=== PATIENT | female | born 1945 | race Two or more races ===

== ENCOUNTER 2021-06-12 11:10 | Outpatient (CLI) | payer OTHER | END 2021-06-12 11:15 | disposition home or self-care (01) | LOC: RAD 11:10 | PROVIDERS: ATTEND Internal Medicine | DX: M51.35 Other intervertebral disc degeneration, thoracolumbar region (principal); I10 Essential (primary) hypertension; I87.2 Venous insufficiency (chronic) (peripheral); I70.0 Atherosclerosis of aorta; I70.293 Other atherosclerosis of native arteries of extremities, bilateral legs; I67.2 Cerebral atherosclerosis; E03.8 Other specified hypothyroidism; J30.89 Other allergic rhinitis; K57.30 Diverticulosis of large intestine without perforation or abscess without bleeding; K59.09 Other constipation; R19.5 Other fecal abnormalities; F33.1 Major depressive disorder, recurrent, moderate; M81.0 Age-related osteoporosis without current pathological fracture; M33.22 Polymyositis with myopathy; M54.17 Radiculopathy, lumbosacral region; M51.36 Other intervertebral disc degeneration, lumbar region; M51.37 Other intervertebral disc degeneration, lumbosacral region; M54.2 Cervicalgia; E53.8 Deficiency of other specified B group vitamins; Z68.31 Body mass index [BMI] 31.0-31.9, adult ==

== ENCOUNTER 2022-02-11 14:10 | Emergency (ER) | payer OTHER ==
[~2022-02-11] VITALS: Ht 172.7 cm; Wt 90.7 kg
[2022-02-11] MEDS ORDERED: SYNTHROID50 MCG (14:26)
[2022-02-11] MEDS ORDERED: METHOTREXA25 MG/1 M5 (14:26)
[2022-02-11] MEDS ORDERED: ESOMEPRAZOLE MA40 MG (14:27)
[2022-02-11] MEDS ORDERED: LISINOPRIL5 MG (14:27)
[2022-02-11] MEDS ORDERED: GABAPENTIN300 M2 (14:27)
[2022-02-11] MEDS ORDERED: ALENDRONATE SOD70 MG (14:27)
[2022-02-11] MEDS ORDERED: DICLOFENAC SOD100 GM (14:27)
[2022-02-11] MEDS ORDERED: RAYOS1 MG (14:27)
[2022-02-11] MEDS ORDERED: QUINAPRIL HCL5 MG (14:28)
[2022-02-11] MEDS ORDERED: LINZESS72 MCG (14:28)
[2022-02-11] MEDS ORDERED: FLONASE16 GM (14:28)
[2022-02-11] MEDS ORDERED: RISEDRONATE SO150 MG (14:28)
[2022-02-11] MEDS ORDERED: FAMOTIDINE40 MG (14:28)
[2022-02-11] MEDS ORDERED: CLEOCIN HCL300 MG PO (18:16)
== END 2022-02-11 18:21 | disposition home or self-care (01) ==
LOC: ER 14:10
DX: S81.812A Laceration without foreign body, left lower leg, initial encounter (principal); X58.XXXA Exposure to other specified factors, initial encounter; Y93.9 Activity, unspecified; Y92.9 Unspecified place or not applicable; Y99.9 Unspecified external cause status; Z88.8 Allergy status to other drugs, medicaments and biological substances; I10 Essential (primary) hypertension